=== PATIENT | female | born 1995 | race African-American/Black ===

== ENCOUNTER 2016-10-01 19:43 | Emergency (ER) | payer OTHER ==
[~2016-10-01] VITALS: Ht 185.4 cm; Wt 47.2 kg
[~2016-10-01 19:43] MED LIST: ATIVAN2 MG/M1 PO; CITRATE OF1.75 GM/30 PO; DIFLUCAN150 MG PO; FLEXERIL 5MG TAB5 MG PO; GOOD SENSE IBU200 MG PO; LANTUS SOLOS100 U/ML SC; LEVEMIR 10100 UNITS/ SC; MIRALAX17 GM PO; MOTRIN 600 MG600 MG PO; MOTRIN CHILDREN50 MG PO; MOTRIN600 MG PO; NOVOLOG100 U/ML SC; ONDANSETRON ODT4 MG PO; PEPCID20 MG PO; TRAMADOL50 MG PO; VICODIN5-300 PO; ZOFRAN ODT4 MG PO; ZOFRAN4 M1 PO
[2016-10-01 21:51] LABS: ABSOLUTE BASOPHIL COUNT 0 /CUMM (0.0-0.2); ABSOLUTE EOSINOPHIL COUNT 0.1 /CUMM (0.0-0.7); ABSOLUTE GRANULOCYTE CT 3.8 /CUMM (1.4-6.5); ABSOLUTE LYMPH COUNT 2.9 /CUMM (1.2-3.4); ABSOLUTE MONOCYTE COUNT 0.5 /CUMM (0.10-0.60); BASOPHIL % 0.4 % (0.0-2.0); EOSINOPHIL % 1.4 % (0-5); GRANULOCYTE % 51.6 % (42.2-75.2); HEMATOCRIT 42.7 % (37-47); MEAN CORPUSCULAR HGB 30.9 PG (27.0-31.0); MEAN CORPUSCULAR HGB CONC 33.5 G/DL (33.0-37.0); MEAN CORPUSCULAR VOLUME 92.3 FL (81.0-99.0); MEAN PLATELET VOLUME 9.8 FL (7.4-10.4); PLATELET COUNT 230 /CUMM (130-400); RBC DISTRIBUTION WIDTH 12.6 % (11.5-14.5); RED BLOOD CELL CT 4.63 /CUMM (4.20-5.40); WHITE BLOOD CELL COUNT 7.4 /CUMM (4.8-10.8)
--- NOTE | 2016-10-01 22:34 | ED GI/GU/ABDOMINAL COMPLAINT ---
History of Present Illness General Chief Complaint: Low Back Pain/Injury Stated Complaint: LOW BACK PAIN Source: patient Exam Limitations: no limitations Vital Signs & Intake/Output Vital Signs & Intake/Output Vital Signs Date Time Temp Pulse Resp B/P Pulse O2 O2 Flow FiO2 Ox Delivery Rate 10/02 2223 97.1 75 18 114/64 99 Room Air 10/01 2012 97.8 87 16 127/80 99 Room Air ED Intake and Output 10/02 0000 10/01 1200 Intake Total Output Total Balance Patient 104 lb Weight Allergies Coded Allergies: NO KNOWN ALLERGIES (04/22/15) Reconcile Medications Fluconazole (Diflucan) 150 MG TAB 1 TAB PO ONCE YEAST VAGINITIS Ibuprofen (Motrin) 600 MG TAB 1 TAB PO TID PRN PAIN Insulin Aspart, Recombinant (Novolog) 100 U/ML BREE 0 UNITS SC TIDAC/HS DM <80 None 80-150 3 Units 150-200 5 Units 201-250 7 Units 251-300 9 Units 301-350 11 Units 351-400 13 Units >400 15 Units Bedtime 201-250 2 Units 251-300 3 Units 301-350 4 Units 351-400 5 Units >400 6 Units Insulin Glargine, Recombinan (Lantus Solostar) 100 U/ML BREE 16 U SC BID DIABETES Triage Note: RECEIVED 21 YO FEMALE C/O LOWER ABDOMINAL PAIN RADIATING TO BACK X 2 DAYS, NO ACTIVE N/V/D. PERIOD ENDED 2 DAYS AGO. Triage Nurses Notes Reviewed? yes ? n Is pt currently ? No Onset: Abrupt Duration: day(s):, constant, continues in ED Timing: recent history Quality/Severity: moderate, sharpness, severe Location: lower abd Radiation: no radiation Activities at Onset: none No Modifying Factors: none HPI: 21-year-old female comes in with complaints of lower abdominal pain. Denies any vaginal discharge or urinary symptoms. Patient reports she has associated low back pain. Patient has a history of chronic low back pain. Patient reports that the pain in the lower abdomen is sharp and shoots across her abdomen. She denies any fever chills or vomiting. Denies any changes in bowel movement. (MARIA EUGENIA GERARDO,MICHELLE) Past History Travel History Traveled to [place] past 21 day No Medical History Any Pertinent Medical History? 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 No (MICHELLE RANGEL) Review of Systems Review of Systems Constitutional: Reports: no symptoms. EENTM: Reports: no symptoms. Respiratory: Reports: no symptoms. Cardiovascular: Reports: no symptoms. GI: Reports: see HPI. Genitourinary: Reports: no symptoms. Musculoskeletal: Reports: see HPI. Skin: Reports: no symptoms. Neurological/Psychological: Reports: no symptoms. Hematologic/Endocrine: Reports: no symptoms. Immunologic/Allergic: Reports: no symptoms. All Other Systems: Reviewed and Negative (MICHELLE RANGEL) Physical Exam Physical Exam General Appearance: well developed/nourished, alert, awake, anxious Head: atraumatic, normal appearance Eyes: Bilateral: normal appearance, EOMI. Ears, Nose, Throat, Mouth: hearing grossly normal, moist mucous membrane Neck: normal inspection, full range of motion Respiratory: normal breath sounds, no respiratory distress Cardiovascular: regular rate/rhythm Gastrointestinal: soft, lower abdomen Back: normal inspection Extremities: normal range of motion Neurologic/Psych: awake, alert, oriented x 3, normal gait, normal mood/affect Skin: intact, normal color Core Measures ACS in differential dx? No Severe Sepsis Present: No Septic Shock Present: No (MICHELLE RANGEL) Progress Differential Diagnosis: appendicitis, biliary colic, cholecystitis, diverticulitis, ectopic , gastritis, hepatitis, ischemic bowel, inflamm bowel dis, intrauterine , kidney stone, Deb-Landen tear, ovarian cyst , ovarian torsion, pancreatitis, PID/cervicitis, peptic ulcer, PUD/GERD, perforated viscous, SBO, threatened AB, UTI/pyelo Plan of Care: Orders Procedure Date/time Status Add-on Test (ER Only) 10/01 2208 Active COMPREHENSIVE METABOLIC PANEL 10/01 2142 Complete LIPASE 10/01 2125 Complete CBC WITHOUT DIFFERENTIAL 10/01 2125 Complete URINE 10/01 2021 Complete URINALYSIS 10/01 2021 Complete Laboratory Tests 10/01/162142: Anion Gap 11, Estimated GFR > 60, BUN/Creatinine Ratio 25.0, Glucose 113 H, Calcium 10.0, Total Bilirubin 0.3, AST 14, ALT 31, Alkaline Phosphatase 88, Total Protein 7.1, Albumin 4.3, Globulin 2.8, Albumin/Globulin Ratio 1.5, Lipase 257, CBC w Diff NO MAN DIFF REQ, RBC 4.63, MCV 92.3, MCH 30.9, RDW 12.6, MPV 9.8 , Gran % 51.6, Lymphocytes % 39.6, Monocytes % 7.0, Eosinophils % 1.4, Basophils % 0.4, Absolute Granulocytes 3.8, Absolute Lymphocytes 2.9, Absolute Monocytes 0.5, Absolute Eosinophils 0.1, Absolute Basophils 0, PUBS MCHC 33.5 10/01/162023: Urine Color YEL, Urine Clarity CLEAR, Urine pH 7.0, Ur Specific [place] 1.015, Urine Protein NEG, Urine Ketones NEG, Urine Nitrite NEG, Urine Bilirubin NEG, Urine Urobilinogen 1.0, Ur Leukocyte Esterase NEG, Ur Microscopic EXAM NOT REQUIRED, Urine Hemoglobin NEG, Urine Glucose >=1000 H, Urine Test NEGATIVE Diagnostic Imaging: Viewed by Me: CT Scan. Discussed w/RAD: CT Scan. Initial ED EKG: none Hand-Off Endorsed To: PEEWEE VASQUEZ MD Endorsed Time: 2252 Pending: CT (MARIA EUGENIA GERARDO,MICHELLE) Radiology Impression: PATIENT: CHYNA WILSON PRESENT AGE: 21 PATIENT ACCOUNT NO: [id number] : 94 LOCATION: [facility] ORDERING PHYSICIAN: MICHELLE GERARDO SERVICE DATE: 10/01/16 EXAM TYPE : CAT - CT ABD & PELVIS W IV CONTRAST EXAMINATION: CT ABDOMEN AND PELVIS WITH CONTRAST CLINICAL INFORMATION: Lower abdomen pain. COMPARISON: None TECHNIQUE: Multidetector volumetric imaging was performed of the abdomen and pelvis before and after the IV administration of 95 mL of Optiray 320 intravenous contrast. Sagittal and coronal reformatted images were obtained on the technologist's workstation. DLP: 234 mGy-cm FINDINGS: The study is limited by motion artifact. LUNG BASES: No suspicious abnormality in the visualized lower chest LIVER, GALLBLADDER, AND BILIARY TREE: No definite abnormality the liver. The liver contour is smooth. There is no calcified gallstone. There is no biliary dilation. PANCREAS: There is no definite abnormality of the pancreas. SPLEEN: Within normal limits ADRENAL GLANDS: No definite adrenal mass. KIDNEYS AND URETERS: No definite urinary calculus. No dilation of the urinary collecting system. There are symmetric nephrograms. No perinephric collection. BLADDER: No suspicious abnormality GASTROINTESTINAL TRACT: Assessment of the GI tract is limited by motion. There is a moderate amount of retained fecal residue throughout the colon. No definite localized colonic wall thickening. The cecum is in the deep right lower quadrant. The appendix appears normal. There is no significant small bowel dilation. There is some apparent thickening in the region of the antrum which could be physiologic. ABDOMINAL WALL: No significant hernia is appreciated. There is a suggestion of some stranding in the superficial fat just above the pubic symphysis. LYMPH NODES: There are no measurably enlarged abdominal or pelvic lymph nodes. There is no significant free intraperitoneal fluid. A trace amount of fluid could be present. VASCULAR: There is no abdominal aortic aneurysm. The portal vein enhances. PELVIC VISCERA: There is indistinctness in the region of the ovaries. No definite abnormality of the uterus. OSSEOUS STRUCTURES: Limited by motion. Artifact projects through the proximal femora IMPRESSION: Study limited by motion. Reportedly the patient declined repeat imaging No evidence of urinary obstruction. The appendix appears normal. DICTATED BY: FRANKIE SHERMAN MD DATE/TIME DICTATED:10/01/162329 MANAGER INVENTORY:SANDI DATE/TIME TRANSCRIBED:10/01/162329 CONFIDENTIAL, DO NOT COPY WITHOUT APPROPRIATE AUTHORIZATION. 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 Evaluation pending for abdominal pain and nausea/vomiting. (NIVIA HERNÁNDEZ,PEEWEE Edwards) Departure Departure Disposition: HOME OR SELF CARE Condition: Stable Clinical Impression Primary Impression: Abdominal pain Referrals: FLORENCIO VERMA (PCP/Family) Departure Forms: Customer Survey General Discharge Information (MARIA EUGENIA GERARDO,MICHELLE) Departure Additional Instructions: Follow-up with your primary care physician for reevaluation of your abdominal pain. Voltaren as prescribed for pain. Return if any concerns or sudden worsening. Please note that there might be incidental findings in your evaluation that are unrelated to the current emergency department visit. Please notify your primary care doctor about this emergency department visit in order to obtain and review all of the testing performed so that these incidental findings can be monitored as needed. If you had an x-ray performed, please understand that some fractures may not be seen on the initial set of x-rays. If your symptoms persist you might need a repeat set of x-rays to check for such a fracture. If you had a laceration evaluated, please understand that foreign bodies such as glass or wood may not be visible to the naked eye or on plain x-rays. If the wound becomes red, swollen, increasingly more painful or if there is any drainage from the wound, please have it reevaluated by a physician for the possibility of a retained foreign body. Thank you for choosing the [facility] Emergency Department for your care. It was a pleasure to serve you today. Peewee Vasquez M.D. [facility] Prescriptions: Current Visit Scripts Ondansetron (Zofran Odt) 1 TAB SL Q6P PRN NAUSEA/VOMITING #10 TAB Diclofenac Potassium 1 TAB PO TID PRN PAIN #30 TAB (NIVIA HERNÁNDEZ,PEEWEE Edwards)
--- NOTE | 2016-10-01 23:41 | CT SCAN REPORT ---
EXAMINATION: CT ABDOMEN AND PELVIS WITH CONTRAST CLINICAL INFORMATION: Lower abdomen pain. COMPARISON: None TECHNIQUE: Multidetector volumetric imaging was performed of the abdomen and pelvis before and after the IV administration of 95 mL of Optiray 320 intravenous contrast. Sagittal and coronal reformatted images were obtained on the technologist's workstation. DLP: 234 mGy-cm FINDINGS: The study is limited by motion artifact. LUNG BASES: No suspicious abnormality in the visualized lower chest LIVER, GALLBLADDER, AND BILIARY TREE: No definite abnormality the liver. The liver contour is smooth. There is no calcified gallstone. There is no biliary dilation. PANCREAS: There is no definite abnormality of the pancreas. SPLEEN: Within normal limits ADRENAL GLANDS: No definite adrenal mass. KIDNEYS AND URETERS: No definite urinary calculus. No dilation of the urinary collecting system. There are symmetric nephrograms. No perinephric collection. BLADDER: No suspicious abnormality GASTROINTESTINAL TRACT: Assessment of the GI tract is limited by motion. There is a moderate amount of retained fecal residue throughout the colon. No definite localized colonic wall thickening. The cecum is in the deep right lower quadrant. The appendix appears normal. There is no significant small bowel dilation. There is some apparent thickening in the region of the antrum which could be physiologic. ABDOMINAL WALL: No significant hernia is appreciated. There is a suggestion of some stranding in the superficial fat just above the pubic symphysis. LYMPH NODES: There are no measurably enlarged abdominal or pelvic lymph nodes. There is no significant free intraperitoneal fluid. A trace amount of fluid could be present. VASCULAR: There is no abdominal aortic aneurysm. The portal vein enhances. PELVIC VISCERA: There is indistinctness in the region of the ovaries. No definite abnormality of the uterus. OSSEOUS STRUCTURES: Limited by motion. Artifact projects through the proximal femora IMPRESSION: Study limited by motion. Reportedly the patient declined repeat imaging No evidence of urinary obstruction. The appendix appears normal.
[2016-10-02 00:23] VITALS: BP 118/58
[2016-10-02] MEDS ORDERED: ZOFRAN ODT4 M1 SL (00:23)
[2016-10-02] MEDS ORDERED: DICLOFENAC POTA50 M1 PO (00:23)
== END 2016-10-02 00:39 ==
LOC: ERH 19:43
PROVIDERS: Physician Assistant Medical
DX: R10.30 Lower abdominal pain, unspecified (principal)
CPT/HCPCS: 74177; 81003; 81025; 96374

== ENCOUNTER 2016-11-08 14:29 | Emergency (ER) | payer OTHER ==
[~2016-11-08] VITALS: Ht 154.9 cm; Wt 47.6 kg
[~2016-11-08 14:29] MED LIST changes: +DICLOFENAC POTA50 M1 PO; +ZOFRAN ODT4 M1 SL
--- NOTE | 2016-11-08 15:03 | ED GENERAL ADULT ---
History of Present Illness General Chief Complaint: Eye Problems Stated Complaint: "PER PT BUMP ON LT EYE BALL" Source: patient Exam Limitations: no limitations Vital Signs & Intake/Output Vital Signs & Intake/Output Vital Signs Date Time Temp Pulse Resp B/P B/P Pulse O2 O2 Flow FiO2 Mean Ox Delivery Rate 11/08 1633 97.0 92 16 111/68 99 Room Air 11/08 1432 97.0 86 18 111/72 100 Room Air Allergies Coded Allergies: NO KNOWN ALLERGIES (04/22/15) Reconcile Medications Diclofenac Potassium 50 MG TABLET 1 TAB PO TID PRN PAIN Fluconazole (Diflucan) 150 MG TAB 1 TAB PO ONCE YEAST VAGINITIS Ibuprofen (Motrin) 600 MG TAB 1 TAB PO TID PRN PAIN Insulin Aspart, Recombinant (Novolog) 100 U/ML BREE 0 UNITS SC TIDAC/HS DM <80 None 80-150 3 Units 150-200 5 Units 201-250 7 Units 251-300 9 Units 301-350 11 Units 351-400 13 Units >400 15 Units Bedtime 201-250 2 Units 251-300 3 Units 301-350 4 Units 351-400 5 Units >400 6 Units Insulin Glargine, Recombinan (Lantus Solostar) 100 U/ML BREE 16 U SC BID DIABETES Ondansetron (Zofran Odt) 4 MG TAB.RAPDIS 1 TAB SL Q6P PRN NAUSEA/VOMITING Triage Note: 21 Y/O FEMALE C/O "BUMP ON MY EYEBALL"; FIRST NOTICED YESTERDAY WHILE WEARING CONTACTS. DENIES NOTING VISUAL CHANGES. Triage Nurses Notes Reviewed? yes Onset: Abrupt Duration: day(s): Timing: recent history : No Patient currently breastfeeds: No HPI: 11/08/16 4:28 pm 21-year-old female presents to the emergency department complaining of a possible foreign body to the left eye. The patient states that she has a history of insulin-dependent diabetes. She says that she noticed a foreign body in the left eye today. She denies any pain or significant problem with her visual acuity. There is no fever there is no trauma. On physical exam her pupils are equally reactive to light extraocular muscles are intact. Visual acuity is grossly normal. She does have a pin head sized circular whitish density in the 9 o'clock position of the left cornea. It did not stain with flourescein stain. She has no photophobia and no, significant pain Assessment Possible foreign body versus corneal abrasion vs corneal stain vs corneal ulceration She is following up with Dr. Lawrence immediately to ensure no corneal ulceration Past History Travel History Traveled to [place] past 21 day No Medical History Any Pertinent Medical History? 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 No Review of Systems Review of Systems Constitutional: Denies: fever. EENTM: Reports: see HPI. Respiratory: Reports: no symptoms. Cardiovascular: Reports: no symptoms. GI: Reports: no symptoms. Genitourinary: Reports: no symptoms. Musculoskeletal: Reports: no symptoms. Skin: Reports: no symptoms. Neurological/Psychological: Reports: no symptoms. Hematologic/Endocrine: Reports: no symptoms. Physical Exam Physical Exam General Appearance: well developed/nourished, alert, awake, anxious, mild distress Head: normal appearance Eyes: Bilateral: normal appearance, PERRL, EOMI. Ears, Nose, Throat: normal pharynx, normal ENT inspection Neck: normal inspection Respiratory: no respiratory distress Cardiovascular: regular rate/rhythm Back: normal range of motion Extremities: normal range of motion Neurologic/Psych: no motor/sensory deficits, awake, alert, oriented x 3, normal gait Skin: intact, normal color, warm/dry Comments: The patient's pupils are equally reactive to light, she was examined with a slit lamp. Funduscopic exam was done after dilation with atropine. Fundi were normal. She did have a pin size whitish density at the 9 o'clock position of the left eye. It did not significantly take up flourscein staining of the possibility of a corneal ulcer was raised. She was sent to follow-up with Dr. Rodriguez. He called me to inform me that she was seen and treated Core Measures ACS in differential dx? No CVA/TIA Diagnosis: No Severe Sepsis Present: No Septic Shock Present: No Progress Differential Diagnoses I considered the following diagnoses in my evaluation of the patient: [Corneal ulceration, corneal abrasion, foreign body, glaucoma] Plan of Care: Follow-up with Dr. Howard cueto. Initial ED EKG: none Departure Departure Disposition: HOME OR SELF CARE Condition: Stable Clinical Impression Primary Impression: Corneal abrasion Referrals: FLORENCIO VERMA (PCP/Family) Departure Forms: Customer Survey General Discharge Information Critical Care Note Critical Care Note Critical Care Time: non-applicable
[2016-11-08 16:33] VITALS: BP 111/68
== END 2016-11-08 16:34 ==
LOC: ERH 14:29
DX: S05.02XA Injury of conjunctiva and corneal abrasion without foreign body, left eye, initial encounter (principal); X58.XXXA Exposure to other specified factors, initial encounter

== ENCOUNTER 2016-12-11 16:33 | Emergency (ER) | payer OTHER ==
[~2016-12-11] VITALS: Ht 154.9 cm; Wt 47.6 kg
[2016-12-11] MEDS ORDERED: LANTUS SOL100 UNIT/1 SC (17:19)
[2016-12-11] MEDS ORDERED: NOVOLOG FL100 UNIT/1 SC (17:19)
--- NOTE | 2016-12-11 17:22 | ED GI/GU/ABDOMINAL COMPLAINT ---
History of Present Illness General Chief Complaint: Abdominal Pain/Flank Pain Stated Complaint: VOMITING FRIDAY/ACH WEAK Source: patient Exam Limitations: no limitations Vital Signs & Intake/Output Vital Signs & Intake/Output Vital Signs Date Time Temp Pulse Resp B/P B/P Pulse O2 O2 Flow FiO2 Mean Ox Delivery Rate 12/11 1942 97.5 87 16 120/76 99 Room Air 12/11 1647 97.6 97 16 119/86 99 Room Air Allergies Coded Allergies: NO KNOWN ALLERGIES (04/22/15) Reconcile Medications Insulin Aspart, Recombinant (Novolog Flexpen) 100 UNIT/ML INSULN.PEN DM ( Reported) Insulin Glargine,Hum.rec.anlog (Lantus Solostar) 100 UNIT/ML (3 ML) INSULN.PEN 17 UNITS SC BID DM (Reported) Ondansetron (Zofran Odt) 4 MG TAB.RAPDIS 1 TAB PO Q6 PRN NAUSEA Triage Note: C/O 3 DAYS OF N/V, CONSTIPATION. LAST VOMITED FRIDAY AND LAST BM FRIDAY. C/O CONSTANT MID ABDOMINAL PAIN, SHARP AND GASSY FEELING. DENIES FLATULENCE. 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 yes ? N Is pt currently ? No Onset: Abrupt Duration: day(s): (3) Timing: multiple episodes today Location: generalized abdomen Radiation: no radiation No Modifying Factors: none Associated Symptoms: abdominal pain, nausea/vomiting HPI: 21 yo arielle with h/o DM presents with vomiting that started on modnay. Friday night she ate cooper/egg/cheese sandwich and hot dog, denies bad food exposure. Friday night she had shrimp/scallops and plantains. Vomited 10 times on friday. Vomited food but no biliary emesis. Later in the day could not hold down fluids. On friday she did not vomit but felt weak. Past History Travel History Traveled to [place] past 21 day No Medical History Any Pertinent Medical History? 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 No Review of Systems Review of Systems Constitutional: Denies: chills, fever. EENTM: Reports: no symptoms. Respiratory: Reports: no symptoms. Cardiovascular: Reports: no symptoms. GI: Reports: abdominal pain, constipation, nausea, vomiting. Genitourinary: Denies: discharge, dysuria, frequency, hematuria. Musculoskeletal: Reports: no symptoms. Skin: Reports: no symptoms. Neurological/Psychological: Reports: no symptoms. Hematologic/Endocrine: Denies: bruising, bleeding, polyuria, polydipsia. Immunologic/Allergic: Reports: no symptoms. All Other Systems: Reviewed and Negative Physical Exam Physical Exam General Appearance: no apparent distress, awake, moderate distress, thin Head: atraumatic, normal appearance Eyes: Bilateral: normal appearance, PERRL, EOMI. Ears, Nose, Throat, Mouth: hearing grossly normal, moist mucous membrane Neck: normal inspection, supple, full range of motion Respiratory: normal breath sounds, chest non-tender, no respiratory distress Cardiovascular: regular rate/rhythm Peripheral Pulses: 2+ radial (R), 2+ radial (L) Gastrointestinal: soft, non-tender Extremities: normal range of motion Neurologic/Psych: no motor/sensory deficits, awake, alert, oriented x 3 Core Measures ACS in differential dx? No Severe Sepsis Present: No Septic Shock Present: No Progress Differential Diagnosis: PUD/GERD, DKA, HYPERGLYCEMIA, GASTROENTERITIS Plan of Care: Orders Procedure Date/time Status ACETONE 12/11 1749 Complete LIPASE 12/11 1743 Complete COMPREHENSIVE METABOLIC PANEL 12/11 1743 Complete CBC WITHOUT DIFFERENTIAL 12/11 174 Complete URINE 12/11 1634 Complete URINALYSIS 12/11 1634 Complete Laboratory Tests 12/11/16 1810: Anion Gap 10, Estimated GFR > 60, BUN/Creatinine Ratio 23.3, Glucose 215 H, Calcium 10.1, Total Bilirubin 0.4, AST 17, ALT 27, Alkaline Phosphatase 84, Total Protein 6.8, Albumin 4.2, Globulin 2.6, Albumin/Globulin Ratio 1.6, Lipase 272, CBC w Diff NO MAN DIFF REQ, RBC 4.72, MCV 92.6, MCH 30.5, RDW 12.3, MPV 9.5 , Gran % 60.6, Lymphocytes % 31.0, Monocytes % 7.6, Eosinophils % 0.6, Basophils % 0.2, Absolute Granulocytes 5.2, Absolute Lymphocytes 2.6, Absolute Monocytes 0.6, Absolute Eosinophils 0, Absolute Basophils 0, PUBS MCHC 32.9 L, Acetone Level NEGATIVE 12/11/16 1728: Urine Color YEL, Urine Clarity CLEAR, Urine pH 6.5, Ur Specific [place] 1.010, Urine Protein TRACE H, Urine Ketones 15 H, Urine Nitrite NEG, Urine Bilirubin NEG, Urine Urobilinogen 1.0, Ur Leukocyte Esterase NEG, Ur Microscopic SEDIMENT EXAMINED, Urine RBC 1-3, Urine WBC RARE, Ur Epithelial Cells MOD H, Urine Bacteria RARE H, Urine Mucus MOD H, Urine Hemoglobin NEG, Urine Glucose >=1000 H, Urine Test NEGATIVE NO EVIDENCE OF DKA, LABS WNL EXCEPT MILD ELEVATED GLUCOSE. PATIENT TOLERATING PO WELL. (MIRTA HERNÁNDEZ,CARLA) Initial ED EKG: none Departure Departure Time of Disposition: 1936 Disposition: HOME OR SELF CARE Condition: Stable Clinical Impression Primary Impression: Gastritis Referrals: FLORENCIO VERMA (PCP/Family) Additional Instructions: Take Zofran as needed for nausea. Clear liquid diet/bland diet and advance as tolerated. Please make sure you sugars are well-controlled. Follow-up with her doctor in the office or return to the ER if worse. Departure Forms: Customer Survey General Discharge Information Prescriptions: Current Visit Scripts Ondansetron (Zofran Odt) 1 TAB PO Q6 PRN NAUSEA #10 TAB
[2016-12-11 18:25] LABS: ABSOLUTE BASOPHIL COUNT 0 /CUMM (0.0-0.2); ABSOLUTE EOSINOPHIL COUNT 0 /CUMM (0.0-0.7); ABSOLUTE GRANULOCYTE CT 5.2 /CUMM (1.4-6.5); ABSOLUTE LYMPH COUNT 2.6 /CUMM (1.2-3.4); ABSOLUTE MONOCYTE COUNT 0.6 /CUMM (0.10-0.60); BASOPHIL % 0.2 % (0.0-2.0); EOSINOPHIL % 0.6 % (0-5); GRANULOCYTE % 60.6 % (42.2-75.2); HEMATOCRIT 43.7 % (37-47); MEAN CORPUSCULAR HGB 30.5 PG (27.0-31.0); MEAN CORPUSCULAR HGB CONC 32.9 G/DL (33.0-37.0); MEAN CORPUSCULAR VOLUME 92.6 FL (81.0-99.0); MEAN PLATELET VOLUME 9.5 FL (7.4-10.4); PLATELET COUNT 198 /CUMM (130-400); RBC DISTRIBUTION WIDTH 12.3 % (11.5-14.5); RED BLOOD CELL CT 4.72 /CUMM (4.20-5.40); WHITE BLOOD CELL COUNT 8.5 /CUMM (4.8-10.8)
[2016-12-11] MEDS ORDERED: ZOFRAN ODT4 M1 PO (19:38)
[2016-12-11 19:42] VITALS: BP 120/76
== END 2016-12-11 19:44 ==
LOC: ERH 16:33
PROVIDERS: Emergency Medicine
DX: K29.70 Gastritis, unspecified, without bleeding (principal)
CPT/HCPCS: 81001; 81025; 96361; 96374